=== PATIENT | female | born 1995 | race Caucasian/White ===

== ENCOUNTER → 2017-09-03 | Emergency (ER) | payer OTHER ==
[~2017-09-03] VITALS: Ht 152.4 cm; Wt 65.8 kg
[~2017-09-03] MED LIST: IRON18 MG
== END | disposition left against medical advice (07) ==
LOC: ER 16:17 → EDBD 16:26 → ER 16:26
DX: N93.8 Other specified abnormal uterine and vaginal bleeding (principal); R10.2 Pelvic and perineal pain